=== PATIENT | female | born 1950 | race Caucasian/White ===

== ENCOUNTER → 2019-12-06 09:42 | Outpatient (CLI) | payer MEDICARE, SELFPAY ==
--- NOTE | ~2019-12-06 | XR_ITS ---
EXAMINATION: XR chest 2V EXAM DATE: 12/06/2019 09:55 INDICATION: Shortness of breath, chronic cough. COPD. TECHNIQUE: Frontal and lateral projections of the chest obtained and reviewed. Comparison is made to prior examination from 11/05/2018. FINDINGS: Mild hyperinflation. The lungs are clear. There are no pleural effusions. The cardiomedia stinal silhouette is within normal limits. There is no pneumothorax suspected. The bones and soft t issues are unremarkable. IMPRESSION: Mild hyperinflation. Reviewed, dictated and finalized at location A. IMPRESSION: Mild hyperinflation.
== END ==
PROVIDERS: Visit Provider Nurse Practitioner Family
DX: R06.02 Shortness of breath (principal); R05 Cough
CPT/HCPCS: 71046